=== PATIENT | female | born 2000 | race Two or more races ===

== ENCOUNTER 2020-06-19 19:38 | Emergency (ER) | payer MEDICAID ==
[~2020-06-19] VITALS: Ht 160 cm; Wt 77.0 kg
[2020-06-19 19:41] VITALS: BP 139/85
[2020-06-19 22:41] LABS: BASOPHILS % 0.6 % (0.0-2.0); EOSINOPHILS % 2.2 % (0.0-5.0); HEMATOCRIT. 35.5 % (36.0-48.0); HEMOGLOBIN. 12.1 g/dL (12.0-16.0); LYMPHOCYTES % 31.2 % (20.0-50.0); MEAN CORPUSCULAR HEMOGLOBIN 28.1 pg (28.0-32.0); MEAN CORPUSCULAR VOLUME 82.4 fL (81.0-99.0); MEAN PLATELET VOLUME 10.1 fl (7.4-10.4); MONOCYTES % 7.3 % (2.0-8.0); NEUTROPHILS % 58.7 % (40.0-76.0); PLATELET 251 x1000/uL (130-400); RED BLOOD CELL COUNT 4.31 mill/uL (4.2-5.4)
[2020-06-19 22:47] LABS: CHLORIDE 110 mEq/L (98-107)
[2020-06-19 22:58] LABS: B-HCG QUANTITATIVE 10 mIU/mL (<3)
[2020-06-19 23:03] LABS: HCG SCREEN POSITIVE
== END 2020-06-19 22:20 | disposition left against medical advice (07) ==
LOC: ER 19:38
DX: O46.91 Antepartum hemorrhage, unspecified, first trimester (principal); Z53.29 Procedure and treatment not carried out because of patient's decision for other reasons; Z3A.01 Less than 8 weeks gestation of pregnancy
CPT/HCPCS: 36415; 76801; 80053; 84702; 84703; 85025; 86850; 86900; 99284